=== PATIENT | female | born 1930 | race Caucasian/White ===

== ENCOUNTER 2020-08-30 12:30 | Emergency (ER) | payer MEDICARE, BC ==
[2020-08-30 13:07] VITALS: BP 133/68; PULSE 90
[2020-08-30] MEDS ORDERED: Sodium Chloride 0.9% 10 ML Syringe FLUSH PRN (13:15)
--- NOTE | 2020-08-30 13:25 | EDM.PDOC ---
ED HPI GENERAL MEDICAL PROBLEM - General Chief Complaint: General Stated Complaint: ABDOMEN PAIN Time Seen by Provider: 08/30/20 12:55 Source of Information: Reports: Patient, RN - History of Present Illness INITIAL COMMENTS - FREE TEXT/NARRATIVE: 89 year old female with PMH crohns, breast CA, presents to ED with her granddaughters boyfriend for upper abdominal pain since last night. She is a poor historian, but does remember several uyears ago having abdominal surgery at [facility]. She denies any nausea or vomiting, but did have 1 episode of vomit yesterday, she described it as a small amount of "green stuff". Denies any urinary symptoms, CP, SOB, diarrhea, blood in stools, fever, or cough. She feels that this is related to something she ate last night, but does not remember what she ate. The pain started after she ate and remains intermittent described asm a crampy feeling. She lives alone and stated that she took a pill for the pain last night, but does not know what she took. Also she admits to not taking some of her medications. Onset Date: 08/29/20 Location: Reports: Abdomen Quality: Reports: Sharp Improves with: Reports: None Worsens with: Reports: None Associated Symptoms: Reports: No Other Symptoms - Related Data Allergies Allergy/AdvReac Type Severity Reaction Status Date / Time No Known Allergies Allergy Verified 06/10/18 19:16 Home Meds: Home Meds Multivitamin [Multivitamins] 1 tab PO DAILY 07/07/15 [History] sulfaSALAzine 500 mg PO TID 07/07/15 [History] Metoprolol Succinate [Toprol Xl] 50 mg PO DAILY #30 tab.sr.24h 07/08/15 [Rx] Cyanocobalamin (Vitamin B-12) [Cyanocobalamin Injection] 1,000 mcg IM ASDIRECTED 03/01/16 [History] Past Medical History HEENT History: Reports: Impaired Vision Cardiovascular History: Reports: Arrhythmia, Other (See Below) Other Cardiovascular History: hx of tachyacrdia Gastrointestinal History: Reports: Inflammatory Bowel Disease Other Gastrointestinal History: Chron's disease, bowel obstruction and bowel resection Genitourinary History: Reports: Urinary Incontinence RESOURCE ECONOMIST History: Reports: Musculoskeletal History: Reports: Arthritis Neurological History: Reports: Other (See Below) Other Neuro History: episodes of syncope Hematologic History: Reports: B12 Deficiency Oncologic (Cancer) History: Reports: Breast - Infectious Disease History Infectious Disease History: Reports: Chicken Pox, Measles, Mumps - Past Surgical History Cardiovascular Surgical History: Reports: None GI Surgical History: Reports: Other (See Below) Female Surgical History: Reports: Breast Biopsy Other Female Surgeries/Procedures: masectomy L side Oncologic Surgical History: Reports: Lumpectomy, Mastectomy Social & Family History - Family History Family Medical History: No Pertinent Family History Cardiac: Reports: CAD Oncologic: Reports: Breast, Uterine ED ROS GENERAL - Review of Systems Review Of Systems: See Below Constitutional: Reports: Weight Loss HEENT: Reports: No Symptoms Respiratory: Reports: No Symptoms Cardiovascular: Reports: No Symptoms Endocrine: Reports: Other (she is not sure if she is diabetic) GI/Abdominal: Reports: Abdominal Pain : Reports: No Symptoms Musculoskeletal: Reports: No Symptoms Skin: Reports: Wound (left 5th toe, has had this for 3 months) Neurological: Reports: No Symptoms Psychiatric: Reports: No Symptoms Hematologic/Lymphatic: Reports: No Symptoms ED EXAM, GENERAL - Physical Exam Exam: See Below Exam Limited By: No Limitations General Appearance: Alert, No Apparent Distress, Thin Eye Exam: Bilateral Eye: Normal Inspection Ears: Normal External Exam Nose: Normal Inspection Throat/Mouth: Normal Inspection, Normal Lips, Normal Oropharynx Head: Atraumatic Neck: Normal Inspection, Full Range of Motion Respiratory/Chest: No Respiratory Distress, Lungs Clear, Normal Breath Sounds, No Accessory Muscle Use Cardiovascular: Normal Peripheral Pulses, Regular Rate, Rhythm, No Edema, No JVD, No Murmur Peripheral Pulses: 3+: Carotid (L), Carotid (R), Radial (L), Radial (R), Dorsalis Pedis (L), Dorsalis Pedis (R) GI/Abdominal: Normal Bowel Sounds, Soft, Non-Tender, Other (no pain at the time of exam) Back Exam: Normal Inspection, Full Range of Motion. No: CVA Tenderness (R), CVA Tenderness (L) Extremities: Normal Inspection, Normal Range of Motion, Non-Tender, No Pedal Edema Neurological: Alert, Oriented, No Motor/Sensory Deficits Psychiatric: Normal Affect, Normal Mood Skin Exam: Warm, Dry Lymphatic: No Adenopathy Course - Vital Signs Last Recorded V/S: Last Vital Signs Temp 97.6 F 08/30/20 12:45 Pulse 90 03/13/21 12:45 Resp 16 08/30/20 12:45 BP 133/68 08/30/20 12:45 Pulse Ox 100 08/30/20 12:45 - Orders/Labs/Meds Orders: Active Orders 24 hr Category Date Time Status EKG Documentation Completion [RC] ASDIRECTED Care 08/30/20 13:20 Active Abdomen Pelvis wo Cont [CT] Stat Exams 08/30/20 13:02 Taken Sodium Chloride 0.9% [Normal Saline] 500 ml Med 08/30/20 13:30 Active IV ASDIRECTED Medication Orders Sodium Chloride (Normal Saline) 500 mls @ 500 mls/hr IV ASDIRECTED CARLOS Last Admin: 08/30/20 13:45 Dose: 500 mls/hr Documented by: BO Labs: Laboratory Tests 08/30/20 08/30/20 08/30/20 Range/Units 03:20 13:13 13:13 WBC 10.2 D (4.0-11.0) K/uL RBC 3.68 L (3.80-5.80) M/uL Hgb 11.5 (11.5-16.5) g/dL Hct 37.1 (37.0-47.0) % MCV 101 H (76-96) fL MCH 31.3 (27.0-32.0) pg MCHC 31.0 (31.0-35.0) g/dL RDW 12.5 (11.0-16.0) % Plt Count 305 D (150-500) K/uL MPV 11.2 H (6.0-10.0) fL Neut % (Auto) 70.2 H (45.0-70.0) % Lymph % (Auto) 16.5 L (20.0-40.0) % [place] % (Auto) 12.8 H (3.0-10.0) % Eos % (Auto) 0.1 L (1.0-5.0) % Baso % (Auto) 0.4 (0.0-0.5) % Neut # (Auto) 7.16 (2.00-7.50) K/uL Lymph # (Auto) 1.68 (1.50-4.00) K/uL [place] # (Auto) 1.30 H (0.20-0.80) K/uL Eos # (Auto) 0.01 L (0.04-0.40) K/uL Baso # (Auto) 0.04 (0.02-0.10) K/uL PT (9.0-11.5) sec INR (1.0-3.5) APTT (24.4-33.2) SECONDS Sodium 144 (136-145) mmol/L Potassium 3.9 (3.5-5.1) mmol/L Chloride 102 (98-107) mmol/L Carbon Dioxide 33.6 H (21.0-32.0) mmol/L Anion Gap 12.3 (5.0-15.0) mmol/L BUN 14 (8-26) mg/dL Creatinine 1.55 H D (0.55-1.02) mg/dL Est Cr Clr Drug Dosing 15.75 mL/min Estimated GFR (MDRD) 32 L (>60) MLS/MIN BUN/Creatinine Ratio 9.0 (6-25) Glucose 113 H (74-100) mg/dL Calcium 8.9 (8.5-10.1) mg/dL Total Bilirubin 0.6 D (0.0-1.0) mg/dL AST 38 H (15-37) U/L ALT 29 (12-78) U/L Alkaline Phosphatase 108 (46-116) U/L Troponin I (0.000-0.060) ng/mL Total Protein 8.0 (6.4-8.2) g/dL Albumin 3.4 (3.4-5.0) g/dL Globulin 4.6 H (2.2-4.2) g/dL Albumin/Globulin Ratio 0.7 L (0.8-2.0) Lipase 204 (73-393) U/L SARS-CoV-2 RNA (CARLYN) (NEGATIVE) 08/30/20 08/30/20 08/30/20 Range/Units 13:13 14:37 14:59 WBC (4.0-11.0) K/uL RBC (3.80-5.80) M/uL Hgb (11.5-16.5) g/dL Hct (37.0-47.0) % MCV (76-96) fL MCH (27.0-32.0) pg MCHC (31.0-35.0) g/dL RDW (11.0-16.0) % Plt Count (150-500) K/uL MPV (6.0-10.0) fL Neut % (Auto) (45.0-70.0) % Lymph % (Auto) (20.0-40.0) % [place] % (Auto) (3.0-10.0) % Eos % (Auto) (1.0-5.0) % Baso % (Auto) (0.0-0.5) % Neut # (Auto) (2.00-7.50) K/uL Lymph # (Auto) (1.50-4.00) K/uL [place] # (Auto) (0.20-0.80) K/uL Eos # (Auto) (0.04-0.40) K/uL Baso # (Auto) (0.02-0.10) K/uL PT 12.7 H (9.0-11.5) sec INR 1.2 (1.0-3.5) APTT 26.3 (24.4-33.2) SECONDS Sodium (136-145) mmol/L Potassium (3.5-5.1) mmol/L Chloride (98-107) mmol/L Carbon Dioxide (21.0-32.0) mmol/L Anion Gap (5.0-15.0) mmol/L BUN (8-26) mg/dL Creatinine (0.55-1.02) mg/dL Est Cr Clr Drug Dosing mL/min Estimated GFR (MDRD) (>60) MLS/MIN BUN/Creatinine Ratio (6-25) Glucose (74-100) mg/dL Calcium (8.5-10.1) mg/dL Total Bilirubin (0.0-1.0) mg/dL AST (15-37) U/L ALT (12-78) U/L Alkaline Phosphatase (46-116) U/L Troponin I < 0.017 D (0.000-0.060) ng/mL Total Protein (6.4-8.2) g/dL Albumin (3.4-5.0) g/dL Globulin (2.2-4.2) g/dL Albumin/Globulin Ratio (0.8-2.0) Lipase (73-393) U/L SARS-CoV-2 RNA (CARLYN) Negative (NEGATIVE) Meds: Medications Generic Name Dose Route Start Last Admin Trade Name Freq PRN Reason Stop Dose Admin Sodium Chloride 500 mls @ 500 mls/hr 08/30/20 13:30 08/30/20 13:45 Normal Saline IV 500 mls/hr ASDIRECTED CARLOS Administration Discontinued Medications Generic Name Dose Route Start Last Admin Trade Name Freq PRN Reason Stop Dose Admin Morphine Sulfate Confirm 08/30/20 15:02 Morphine 2 Mg/Ml Syringe Administered 08/30/20 15:03 Dose 2 mg .ROUTE .STK-MED ONE Morphine Sulfate 1 mg 08/30/20 15:12 08/30/20 15:14 Morphine 2 Mg/Ml Syringe IVPUSH 08/30/20 15:13 1 mg ONETIME ONE Administration Departure - Departure Time of Disposition: 15:36 Disposition: DC/Tfer to Acute Hospital 02 Condition: Fair Clinical Impression: SBO (small bowel obstruction) Gallstone Qualifiers: Cholecystitis presence: without cholecystitis Biliary obstruction: without biliary obstruction Qualified Code(s): K80.20 - Calculus of gallbladder without cholecystitis without obstruction - Discharge Information *PRESCRIPTION DRUG MONITORING PROGRAM REVIEWED*: Not Applicable *COPY OF PRESCRIPTION DRUG MONITORING REPORT IN PATIENT REEMA: Not Applicable Instructions: Bowel Obstruction, [id number] Referrals: PCP,None [Primary Care Provider] - Forms: ED Department Discharge Sepsis Event Note (ED) - Evaluation Sepsis Screening Result: No Definite Risk - Focused Exam Vital Signs: Vital Signs Temp Pulse Resp BP Pulse Ox 08/30/20 12:45 97.6 F 90 16 133/68 100 - My Orders Last 24 Hours: My Active Orders 08/30/20 13:20 EKG Documentation Completion [RC] ASDIRECTED 08/30/20 13:30 Sodium Chloride 0.9% [Normal Saline] 500 ml IV ASDIRECTED - Assessment/Plan Last 24 Hours: My Active Orders 08/30/20 13:20 EKG Documentation Completion [RC] ASDIRECTED 08/30/20 13:30 Sodium Chloride 0.9% [Normal Saline] 500 ml IV ASDIRECTED Assessment:: Patient has approximately 5 seconds of sharp cramping pain. Refusing any pain meds at this time. Spoke with Dr. Paez from [facility], patient has a SBO suspected at the ileocelal valve and a large calcified gallstone. Patient is agreeable to plan to transfer to [place]. Called Lala her daughter [phone] we discussed her pending transfer to [place] for further work up on SBO and gallstone. other daughter is Samina [phone] or [phone]. [phone] called [facility], spoke with with surgery. She will be admitted to the Hospitalist Dr. Mcginnis.
[2020-08-30] MEDS ORDERED: Sodium Chloride 0.9% 500 ML IV SCH (13:30)
[2020-08-30] MEDS ORDERED: Morphine 2 MG/ML SYRINGE ONE (15:02)
[2020-08-30] MEDS ORDERED: Morphine 2 MG/ML SYRINGE IVPUSH ONE ×2 (15:12→16:17)
--- NOTE | 2020-08-30 15:40 | PCM.EKG ---
#1 Interpretation EKG Date: 08/30/20 Time: 13:30 Rhythm: NSR Rate (Beats/Min): 89 P-Wave: Present QRS: Normal ST-T: Normal (epigastric pain) QT: Prolonged Comparison: NA - No Prior EKG
--- NOTE | 2020-08-31 11:31 | CT ---
Date of Service: 08/30/20 Clinical Data: abdominal pain UNENHANCED ABDOMEN AND PELVIC CT: Multislice acquisition through the abdomen and pelvis with IV or oral contrast was performed. There are emphysematous changes in both lower lungs. There are linear densities in both lung bases consistent with linear atelectasis or fibrosis. There are multiple small nodular opacities in both lower lungs. There are also irregular densities in the left lung base with somewhat tree-in-bud appearance. The lung bases are otherwise clear. No pneumothorax. No pleural effusions. The unenhanced liver appears normal. No focal hepatic lesions. The gallbladder is distended. There is a large gallstone within the gallbladder with central calcification. No pericholecystic fluid. The spleen appears normal. The pancreas appears normal. The right and left adrenals appear normal. The right and left kidneys appear normal. No nephrocalcinosis or nephrolithiasis. No hydronephrosis or hydroureter. The bladder is partially fluid filled. It appears normal. The stomach and gas and fluid-filled and moderately distended. There are multiple distended, fluid and gas-filled loops of small bowel throughout the abdomen and pelvis. The terminal ileum is significantly distended and there is fecalization within it. An obstruction at the ileocecal valve is suspected. There is a moderate amount of stool noted within the right and sigmoid colon. No free air. No free fluid. No adenopathy. No aortic aneurysm. No other significant findings. IMPRESSION: 1. Findings consistent with a distal small bowel obstruction. 2. Nodular opacities in both lower lungs with tree-in-bud appearance in left lung base. An infectious or inflammatory process cannot be excluded. Chest CT may be helpful to further evaluate the patient's lung findings. 3. Large gallstone within the gallbladder. [id number] [facility]
== END 2020-08-30 16:00 ==
LOC: LB.ED 12:30
DX: K80.20 Calculus of gallbladder without cholecystitis without obstruction (principal); K56.609 Unspecified intestinal obstruction, unspecified as to partial versus complete obstruction; Z20.822 Contact with and (suspected) exposure to COVID-19
CPT/HCPCS: 36415; 74176; 80053; 83690; 84484; 85025; 85610; 85730; 93005; 96374; 99285; 99285-25; A0425; A0429; J2270; J7050; U0002

== ENCOUNTER 2020-11-22 20:14 | Emergency (ER) | payer MEDICARE, BC ==
[2020-11-22] MEDS ORDERED: Sodium Chloride 0.9% 500 ML IV ONE (20:43)
--- NOTE | 2020-11-22 23:02 | ER ---
REASON FOR EMERGENCY ROOM VISIT: Weakness and dizziness. HISTORY: This 89-year-old woman was brought to the emergency department by ambulance after experiencing weakness and dizziness. She states that she does live alone in town [facility] and states that she feels that she got overheated today because she does not have air conditioning and she let the windows open, which led in a lot of warm air. She did not have any nausea, vomiting, diarrhea, or headache. She felt somewhat lightheaded and weak throughout the day. A neighbor came in and checked on her and felt that she possibly had gotten this way due to the heat and dehydration. She does state that she drank 3 cans of Ensure today which is part of her daily diet, although she normally drinks 2. She lied on the sofa all day when she started to experience dizziness and weakness. She has not had a COVID vaccine and she elects not to get one stating "I am not afraid." She denies any respiratory symptoms. No sore throat. She denies any chest pain. PAST MEDICAL HISTORY: 1. Significant for Crohn disease. 2. Possible lactose intolerance. 3. History of laparotomy and small-bowel resection. 4. History of bilateral mastectomy for cancer "many years ago.". MEDICATIONS: Include metoprolol 100 mg p.o. b.i.d., sulfasalazine 500 mg p.o. t.i.d., and vitamins. ALLERGIES: NONE TO MEDICATIONS. REVIEW OF SYSTEMS: Pertinent positives and negatives as listed in the HPI. PHYSICAL EXAMINATION: GENERAL: She is alert and talkative and in no acute distress. VITAL SIGNS: Her temperature is 99.8, blood pressure 166/68, heart rate 92, O2 sats 96% on room air. HEENT: No conjunctivitis or scleral icterus. Oropharynx without any evidence of pharyngitis. NECK: Supple. CHEST: Clear to auscultation with no wheezes, rhonchi, or rales and good air exchange bilaterally. Both breasts are surgically absent. CARDIAC: Regular rate without murmur. ABDOMEN: Scaphoid, soft, nontender, with no masses or organomegaly. EXTREMITIES: No cyanosis. No edema. [place] and warm. NEUROLOGIC: She is alert and oriented x3. She moves all 4 extremities to command. She has no facial asymmetry. LABORATORY DATA: CBC is unremarkable with a white count of 6500 and hemoglobin of 11.2. Her shows that her electrolytes are normal. Her BUN is 34 with a creatinine of 1.48. Her estimated GFR is 33. Her glucose is 169 (nonfasting). Her calcium is 8.4. Her transaminases are normal. Her albumin is 3.0. Urinalysis was clear with no evidence of UTI and no pyuria. IMPRESSION: Dehydration probably secondary to heat exposure and mild heat exhaustion type symptoms. FURTHER EMERGENCY ROOM COURSE: She was given 500 mL of IV normal saline and she ate a sandwich and a protein drink and tolerated it quite well. Additionally, she is now drinking some Gatorade. The emergency room nurse did speak to her daughter who is a registered nurse, who informed us that there is a network of people and friends within [place], who check up on her often and she will alert them. We informed the patient and her daughter that our plan is to let her go back home following a completion of hydration and we stressed repeatedly the importance of maintaining adequate fluid intake and hydration, particularly during this hot whether. She understands and agrees with this plan. Because of her elevated creatinine and BUN, although we think this is largely due to dehydration. As a precaution, we have asked her to follow up with the clinic on Tuesday to have her electrolytes rechecked to make sure her creatinine is settling back down to a more normal value. She and her daughter both understand and agree with this plan. All questions were answered. LINDA /[id number]
[2020-11-23 08:05] VITALS: BP 141/53; PULSE 80
== END 2020-11-22 22:13 | disposition home or self-care (01) ==
LOC: LB.ED 20:14
DX: E86.0 Dehydration (principal)
CPT/HCPCS: 36415; 80053; 81001; 85025; 99283; 99285; A0425; A0429; J7040